=== PATIENT | female | born 1940 | race Two or more races ===

== ENCOUNTER → 2019-02-23 | Emergency (ER) | payer OTHER ==
[~2019-02-23] VITALS: Ht 157.5 cm; Wt 60.8 kg
[~2019-02-23] MED LIST: PRAVASTATIN SOD20 MG PO; SYNTHROID75 MCG PO
== END | disposition left against medical advice (07) ==
LOC: ER 14:11
DX: Z53.20 Procedure and treatment not carried out because of patient's decision for unspecified reasons (principal)

== ENCOUNTER 2023-09-03 15:55 | Emergency (ER) | payer OTHER ==
[~2023-09-03] VITALS: Ht 152.4 cm; Wt 52.6 kg
== END 2023-09-03 20:43 ==
LOC: ER 15:56
DX: S61.213A Laceration without foreign body of left middle finger without damage to nail, initial encounter (principal); S09.90XA Unspecified injury of head, initial encounter; W19.XXXA Unspecified fall, initial encounter; Y93.89 Activity, other specified; Y92.098 Other place in other non-institutional residence as the place of occurrence of the external cause; Y99.8 Other external cause status; E03.8 Other specified hypothyroidism

== ENCOUNTER 2024-01-08 10:14 | Outpatient (CLI) | payer OTHER | END 2024-01-08 10:22 | disposition home or self-care (01) | LOC: RAD 10:14 | DX: M75.00 Adhesive capsulitis of unspecified shoulder (principal) ==

== ENCOUNTER 2024-08-27 13:30 | Emergency (ER) | payer OTHER ==
[~2024-08-27] VITALS: Ht 152.4 cm; Wt 49.9 kg
[2024-08-27] MEDS ORDERED: HORIZANT300 MG PO (13:53)
[2024-08-27] MEDS ORDERED: ASPIRIN81 MG PO (13:53)
[2024-08-27] MEDS ORDERED: TAMOXIFEN CITRA20 MG PO (13:53)
[2024-08-27] MEDS ORDERED: ESCITALOPRA5 MG/5 ML PO (13:54)
[2024-08-27] MEDS ORDERED: SERTRALINE HCL50 MG PO (13:55)
[2024-08-27 15:43] LABS: BASO % 0.7 % (0.1-1.2); EOS # 0.12 (0.04-0.54); EOS % 1.8 % (0.7-7.0); LYMPH # 1.43 (1.18-3.74); LYMPH % 21.0 % (19.3-53.1); MEAN PLATELET VOLUME 9.40 fl (9.4-12.4); MONO # 0.76 (0.24-0.82); MONO % 11.1 % (4.7-12.5); NEUT # 4.45 (1.56-6.13); NEUT % 65.3 % (34.0-71.1); RED CELL DISTRIBUTION WIDTH 13.9 % (11.6-14.4)
[2024-08-27 16:04] LABS: BUN CREA RATIO 31.0 (7.0-25.0); CREATININE SERUM 0.71 mg/dL (0.55-1.02); GFR 79.01; GLUCOSE FASTING 105.0 mg/dL (65-100); OSMOLALITY SERUM 289.0 MOSM/KG (275-295)
[2024-08-27 16:45] LABS: URINE APPEARANCE Cloudy; URINE BILIRRUBIN Negative (NEGATIVE); URINE BLOOD Negative; URINE COLOR Yellow; URINE GLUCOSE Negative (NEGATIVE); URINE KETONE Negative (NEGATIVE); URINE LEUKOCYTE Small; URINE NITRATE Negative; URINE PROTEIN Negative (NEGATIVE); URINE UROBILINOGEN 1.0 E.U./dl
[2024-08-27 16:49] LABS: URINE EPITHELIAL CELLS 9.8 uL (0.0-38.8); URINE RBC 18.1 uL (0.0-20.8); URINE WBC 60.9 uL (0.0-23.2)
[2024-08-27 16:58] LABS: URINE BACTERIA > 9821.5 uL (0.0-1933); URINE CAST 0.14 uL (0.0-1.40)
[2024-08-28] MEDS ORDERED: 0.9 % SODIUM CHLORIDE 1,000 ML IV SCH (09:00)
== END 2024-08-27 17:26 | disposition home or self-care (01) ==
LOC: ER 13:30
PROVIDERS: Emergency Medicine
DX: R55 Syncope and collapse (principal); E03.8 Other specified hypothyroidism; E78.00 Pure hypercholesterolemia, unspecified
CPT/HCPCS: 36415; 70450; 93005; 96365; 99284; J7030